=== PATIENT | male | born 1955 | race Caucasian/White ===

== ENCOUNTER → 2020-04-16 | Outpatient (CLI) | payer OTHER ==
[~2020-04-16] MED LIST: CATHETER FLUSH 10 ML SYR IV PRN
--- NOTE | 2020-04-16 12:27 | Diagnostic Imaging Report ---
INDICATION: Right upper quadrant pain. Patient was administered 5.5 mCi technetium 99m Choletec intravenously and imaging over the abdomen was performed. At 1 hour patient ingested 8 ounces Ensure and a gallbladder ejection fraction was calculated. Patient denied discomfort during the study. There is homogeneous uptake of activity by the liver. Prompt excretion of activity into the common duct and gallbladder is noted. There is normal passage of activity into the small bowel. Gallbladder ejection fraction is slightly low at 30%. Normal values are 35% or greater. IMPRESSION: 1. Patent cystic duct and common bile duct. 2. Low gallbladder ejection fraction of 30%. Dictated by: Dictated on workstation # [id number]
== END ==
LOC: CARD 10:00
PROVIDERS: ATTEND Surgery
DX: R10.11 Right upper quadrant pain (principal)
CPT/HCPCS: 78227; A9537

== ENCOUNTER 2021-02-26 05:47 | Outpatient (RCR) | payer OTHER ==
[~2021-02-26] VITALS: Ht 193 cm; Wt 100.0 kg
== END 2021-02-26 10:56 | disposition home or self-care (01) ==
LOC: PREOP 05:47 → EDSTATUS 09:00 → PREOP 10:56
PROVIDERS: ATTEND Podiatrist Foot & Ankle Surgery
DX: Z01.818 Encounter for other preprocedural examination (principal)

== ENCOUNTER 2021-03-04 05:55 | Day surgery (SDC) | payer OTHER ==
[~2021-03-04] VITALS: Ht 193 cm; Wt 100.0 kg
[2021-03-04] VITALS (9 sets, daily range): BP systolic 120–147; BP diastolic 69–88
[2021-03-04] MEDS ORDERED: LACTATED RINGERS 1,000 ML IV PRN (06:15)
[2021-03-04] MEDS ORDERED: ceFAZolin INJECTION 1,000 MG in WATER (STERILE) FOR INJECTION 10 ML IV ONE (06:15)
[2021-03-04] MEDS ORDERED: MIDAZOLAM 2 MG/2 ML (VERSED) VIAL ONE (07:15)
[2021-03-04] MEDS ORDERED: fentaNYL INJ 100 MCG/2 ML AMP ONE (07:15)
[2021-03-04] MEDS ORDERED: morphine INJ 10 MG/ML 1ML (SYR OR VIAL) IVP ONE (07:15)
[2021-03-04] MEDS ORDERED: LIDOCAINE PF 2% 5 ML (XYLOCAINE) VIAL ONE (07:15)
[2021-03-04] MEDS ORDERED: ONDANSETRON 4 MG/2 ML (SDV) Z0FRAN ONE (07:15)
[2021-03-04] MEDS ORDERED: proPOfol 200 MG/20 ML (DIPRIVAN) VIAL IV ONE (07:15)
[2021-03-04] MEDS ORDERED: ONDANSETRON 4 MG/2 ML (SDV) Z0FRAN IVP PRN (07:15)
[2021-03-04] MEDS ORDERED: BUPIVACAINE 0.5% 30 ML (SENSORCAINE) VIAL ONE (07:18)
[2021-03-04] MEDS ORDERED: LIDOCAINE 1% INJ 20 ML 20 ML VIAL ONE (07:18)
--- NOTE | 2021-03-04 07:33 | Progress Note-Pre Operative ---
Pre-Operative Progress Note H&P Reviewed The H&P was reviewed, patient examined and no changes noted. Date Seen by Provider: Mar 04, 2021 Time Seen by Provider: 07:33 Date H&P Reviewed: Mar 04, 2021 Time H&P Reviewed: 07:33 Pre-Operative Diagnosis: Tailors bunion, hammertoes 2, 3, 4, 5, left foot HERBERT NESBITT DPVikki Mar 04, 2021 07:33
[2021-03-04] MEDS ORDERED: ACHD5005 PO (07:46)
[2021-03-04] MEDS ORDERED: CEPH500C PO (07:46)
[2021-03-04] MEDS ORDERED: LACTATED RINGERS 1,000 ML IV SCH (08:00)
[2021-03-04] MEDS ORDERED: HYDROcodone/APAP 5 MG/325 MG (LORTAB) TAB PO PRN (08:00)
[2021-03-04] MEDS ORDERED: SEVOFLURANE (ULTANE) 15 ML INHAL SOLN ONE (09:31)
--- NOTE | 2021-03-04 10:02 | Progress Note-Post Operative ---
Post-Operative Progess Note Surgeon (s)/Evaporator Operator (s) Surgeon HERBERT NESBITT DPM Evaporator Operator: none Pre-Operative Diagnosis Tailors bunion, hammertoes 2, 3, 4, 5, left foot Post-Operative Diagnosis same Procedure & Operative Findings Date of Procedure 03/04/21 Procedure Performed/Findings Tailor's bunionectomy, reduction of hammertoes 2, 3, 4, 5, left foot Anesthesia Type General Estimated Blood Loss Estimated blood loss (mL): Minimal Specimens/Packing Specimens Removed none HERBERT NESBITT DPM Mar 04, 2021 10:02
--- NOTE | 2021-03-04 10:41 | Diagnostic Imaging Report ---
INDICATION: Postop foot. COMPARISON: None. FINDINGS: Two radiographic views of the left foot were obtained. Metallic surgical pins extend through the 2nd, 3rd, and 4th toes. Osteotomy defect of the 5th proximal phalanx is also noted. There is soft tissue emphysema. No unexpected radiopaque foreign bodies are seen. Joint spaces are otherwise maintained. IMPRESSION: Post operative changes of the left foot as above. Dictated by: Dictated on workstation # [id number]
--- NOTE | 2021-03-04 11:44 | Physical Therapy Ortho Eval ---
PT Orthopedic Evaluation Type of Surgery Tailors brittneyion, hammertoes 2, 3, 4, 5, left foot Prior Level of Function Current Living Status: Spouse Locomotion (Upon Admit): Independent Established Durable Medical Eq: Crutches Subjective Subjective Patient agrees to PT. Entry Into Home: Stairs With Railing Steps Into Home: 3 Objective Objective PWB left foot with surgical shoe in place Motor Control Motor Control: Motor Control WNL ROM ROM: WFL, except focal deficit Strength Strength: WFL Transfer SCALE: Activities may be completed with or without assistive devices. 9-Ujcskzkebh-lboundk completes the activity by him/herself with no assistance from a helper. 5-Set-up or Clean-up Assistance-helper sets up or cleans up; patient completes activity. [place] assists only prior to or following the activity. 4-Supervision or Touching Assistance-helper provides verbal cues and/or touching/steadying and/or contact guard assistance as patient completes activity. Assistance may be provided throughout the activity or intermittently. 3-Partial/Moderate Assistance-helper does LESS THAN HALF the effort. [place] lifts, holds or supports trunk or limbs, but provides less than half the effort. 2-Substantial/Maximal Assistance-helper does MORE THAN HALF the effort. [place] lifts or holds trunk or limbs and provides more than half the effort. 2-Tumrowbty-lvyqje does ALL the effort. Patient does none of the effort to complete the activity. Or, the assistance of 2 or more helpers is required for the patient to complete the activity. If activity was not attempted, code reason: 7-Patient Refused. 9-Not Applicable-not attempted and the patient did not perform the activity before the current illness, exacerbation or injury. 10-Not Attempted due to Environmental Limitations-(lack of equipment, weather restraints, etc.). 88-Not Attempted due to Medical Conditions or Safety Concerns. Transfers (B, C, W/C) (QC): 6 Gait Gait Assistive Device: Crutches Right Lower Extremity: Right Weight Bearing Status RLE: Full Weight Bearing Left Lower Extremity: Left Weight Bearing Status LLE: Partial Weight Bearing Gait (QC): 5 Distance (QC): 3=093-53 ft Distance: 100' Gait Level of Assist: 5 Treatment Rendered Treatment: Gait Train, Step Train Assessment/Goals Goal Time Frame: 1 Visit Safe Ambulation: Yes Plan Treatment Plan: Discharge Treatment Duration: evaluation PT/Family Agrees to Plan: Yes Time Time In: 1120 Time Out: 1134 Total Billed Treatment Time: 14 [facility] PT Mar 04, 2021 11:44
--- NOTE | 2021-03-04 14:44 | OPERATIVE REPORT ---
DATE OF SERVICE: 03/04/2021 SURGEON: Ryann Nesbitt DPM. PREOPERATIVE DIAGNOSES: 1. Hammer digit syndrome, left second, third, fourth and fifth digits. 2. Tailor's bunion, left fifth metatarsophalangeal joint. POSTOPERATIVE DIAGNOSES: 1. Hammer digit syndrome, left second, third, fourth and fifth digits. 2. Tailor's bunion, left fifth metatarsophalangeal joint. PROCEDURES: 1. Tailor's bunionectomy, left. 2. Reduction of hammertoe, left second, third, fourth and fifth digits. WOUND CLASS: Clean. ANESTHESIA: General. HEMOSTASIS: Pneumatic thigh tourniquet at 300 mmHg. INDICATIONS: This 65-year-old male presents complaining of a painful left foot. Conservative therapy is met with unsatisfactory results and the patient is agreeable to surgical intervention after risks and complications were discussed at length. No guarantees were extended to the patient and he is willing to proceed. DESCRIPTION OF PROCEDURE: The patient was brought back to the operating table, placed in secure supine position. General anesthetic was then induced. Appropriate timeout was performed. A pneumatic thigh tourniquet was placed on the left lower extremity over several layers of padding. The left foot was anesthetized utilizing aseptic technique with 12 mL of 1:1 mixture of 1% Xylocaine, 0.5% Marcaine injected in a digital block to the second, third, fourth and fifth digits as well as the left fifth metatarsal head area. The left foot was then prepped and draped in normal sterile manner. The left foot was then elevated and allowed to exsanguinate after which the tourniquet was inflated to 300 mmHg. Attention was then directed to the lateral aspect of the left fifth metatarsal head area where a 3 cm longitudinal linear incision was created. The incision was deepened down the same plane with great care to identify and retract all vital neurovascular structures. A bursal sac was identified to the lateral aspect of the left fifth metatarsal head area. This area was sharply debrided. The incision was deepened down to the capsular tissue where a longitudinal capsulotomy was performed. This exposed the hypertrophic lateral and the plantar eminence to the fifth metatarsal head area. Utilizing a power sagittal saw, these areas were reduced noting good reduction of the bony prominence. No other abnormalities were identified in this area. The area was cleansed, after which closure was performed in layers. Deep closure was performed with 3-0 Vicryl, superficial with 4-0 Vicryl, skin closure with 4-0 Prolene in a horizontal mattress type stitch. Attention was then directed to the dorsal aspect of the left second metatarsophalangeal joint and the incision was extended out to the distal interphalangeal joint of the toe. The incision was deepened in the same plane with great care to identify and retract all vital neurovascular structures. All the necessary blood vessels were cauterized as encountered. The incision was deepened down to the extensor tendon where a Z slide lengthening was performed. The extensor tendon was reflected proximally and distally. The extensor cast overlying the metatarsophalangeal joint was released and the dorsal capsulorrhaphy was performed. This allowed the metatarsophalangeal joint to come into more appropriate alignment. Next, the head of the proximal phalanx was fashioned into a peg with a power sagittal saw and power bur and a hole was created into the base of the middle phalanx for the peg-in-hole type arthrodesis. Utilizing a 0.054 K-wire, the digit was held in its rectus alignment. This was after a thorough wash was performed with normal saline. The extensor tendon was then repaired in a lengthened position. Excellent alignment of the digit was appreciated at this time. Deep closure was performed with 3-0 Vicryl, superficial with 4-0 Vicryl, skin closure with 4-0 Prolene in a horizontal mattress type stitch. The excess K-wire coming out the end of the toe was cut and a protective ball placed over the end of the wire. Next, attention was directed to the left fifth digit where an incision of the dorsal aspect of the metatarsophalangeal joint was extended into the distal interphalangeal joint area of the toe. The incision was deepened in the same plane with great care to identify and retract all vital neurovascular structures. The incision was made down to the extensor tendon where a Z slide lengthening was performed. The same maneuver was performed to the left third and fourth digits with a very similar incision and a Z slide lengthening. Next, the dorsal capsulorrhaphy was performed to the metatarsophalangeal joint after the extensor cast was released. This reduced the dorsal contracture of the proximal phalanx to the third, fourth and fifth digits. Next, an arthroplasty was performed to the left fifth digit where the head of the proximal phalanx was reduced utilizing a power sagittal saw. The wound was flushed with copious amounts of normal saline and closure was performed in layers. Deep closure was performed with 3-0 Vicryls with the extensor tendon repaired in its lengthened position. Subcutaneous tissue was reapproximated with 4-0 Vicryl and skin closure with 4-0 Prolene in a horizontal mattress type stitch. Attention was redirected to the third and fourth digits where utilizing an #11 blade, a flexor tendon release was performed percutaneously at the level of the proximal interphalangeal joint. This allowed the digits to come into rectus alignment. The wounds were flushed with copious amounts of normal saline and closure was performed to the dorsal wounds to the third and fourth digits utilizing 3-0 Vicryl followed by 4-0 Vicryl, and skin closure in a similar reduction as was performed to the other digits. A 0.054 K-wire was driven out at the end of the toe to the third and fourth digits holding them in their new rectus alignment. The excess K-wire was cut and a protective ball placed over the wires of the third and fourth digits. Excellent alignment was appreciated at this time to the lesser digits of the left foot. Postoperative injection consisted of 10 mL of 0.5% Marcaine injected in a local infusion to the surgical sites. Postoperative dressing consisted of Betadine soaked Adaptic, sterile 4 x 4, sterile Kerlix all secured with a Coban wrap. The patient tolerated the anesthesia and procedure well, was transported from the operating room to the recovery area with vital signs stable and vascular status intact to all digits of the left foot. He was given a prescription for Keflex and Vicodin. He is to follow up in my office in 10 days' period of time or sooner if necessary. Job ID: [id number] DocumentID: [id number] Dictated Date: 03/04/2021 09:59:38 Training Personnel Supervisor Date: 03/04/2021 14:44:03 Dictated By: RYANN NESBITT DPM
--- NOTE | 2021-03-07 07:50 | Anesthesia-General Post-Op ---
General Patient Condition Mental Status/LOC: Same as Preop Cardiovascular: Satisfactory Nausea/Vomiting: Absent Respiratory: Satisfactory Pain: Controlled Complications: Absent Post Op Complications Complications None Follow Up Care/Instructions Patient Instructions None needed. Anesthesia/Patient Condition Patient Condition Post-dated progress note: Patient was seen on 12 after the procedure at approximately 1045 and he was doing well, no complaints, stable vital signs, no apparent adverse anesthesia problems. NUNO GAN DO Mar 07, 2021 07:50
== END 2021-03-04 11:35 | disposition home or self-care (01) ==
LOC: SDC 05:55
PROVIDERS: ATTEND Podiatrist Foot & Ankle Surgery
DX: M20.42 Other hammer toe(s) (acquired), left foot (principal); M21.622 Bunionette of left foot; G47.33 Obstructive sleep apnea (adult) (pediatric); Z99.89 Dependence on other enabling machines and devices
CPT/HCPCS: 73620; 87081

== ENCOUNTER → 2021-06-27 | Outpatient (CLI) | payer OTHER ==
[~2021-06-27] MED LIST changes: +ACHD5005 PO; -CATHETER FLUSH 10 ML SYR IV PRN; +CEPH500C PO
== END ==
LOC: LABNPT 06:05
PROVIDERS: ATTEND Otolaryngology Otolaryngology/Facial Plastic Surgery
DX: G47.33 Obstructive sleep apnea (adult) (pediatric) (principal)

== ENCOUNTER → 2021-06-29 | Outpatient (CLI) | payer OTHER | LOC: SLEEP 19:25 | PROVIDERS: ATTEND Nurse Practitioner | DX: G47.33 Obstructive sleep apnea (adult) (pediatric) (principal); Z20.822 Contact with and (suspected) exposure to COVID-19 | CPT/HCPCS: 95811 ==